=== PATIENT | male | born 1940 ===

== ENCOUNTER 2018-05-30 15:10 | Outpatient (CLI) | payer OTHER | END 2018-05-30 15:18 | disposition home or self-care (01) | LOC: RAD 15:10 | DX: R06.02 Shortness of breath (principal) ==

== ENCOUNTER 2018-06-19 05:37 | Day surgery (SDC) | payer OTHER ==
[~2018-06-19 05:37] MED LIST: ALPHAGAN P5 M2 OP; ALTACE10 MG PO; ASPIRIN81 M1 PO; ASPIRIN81 MG PO; FORTAMET1000 MG PO; INDOMETHACIN25 MG PO; TRUSOPT10 ML OP; ZOCOR40 MG PO
[2018-06-19] MEDS ORDERED: POLY119PG PO (12:49)
[2018-06-19] MEDS ORDERED: PERCOCET 5-3251 EACH PO (12:49)
[2018-06-19] MEDS ORDERED: NEURONTIN600 MG PO (12:51)
== END 2018-06-19 14:35 | disposition home or self-care (01) ==
LOC: CIR.AMB 05:37
DX: K40.90 Unilateral inguinal hernia, without obstruction or gangrene, not specified as recurrent (principal); K42.0 Umbilical hernia with obstruction, without gangrene; K43.6 Other and unspecified ventral hernia with obstruction, without gangrene

== ENCOUNTER 2020-11-24 06:00 | Day surgery (SDC) | payer OTHER ==
[~2020-11-24 06:00] MED LIST changes: +NEURONTIN600 MG PO; +PERCOCET 5-3251 EACH PO; +POLY119PG PO
[2020-11-24] MEDS ORDERED: SURFAK240 M1 PO (09:23)
[2020-11-24] MEDS ORDERED: POLY119PG PO (09:24)
[2020-11-24] MEDS ORDERED: ULTRAM50 MG PO (09:32)
== END 2020-11-24 12:30 | disposition home or self-care (01) ==
LOC: CIR.AMB 06:00
PROVIDERS: ATTEND Surgery
DX: K40.90 Unilateral inguinal hernia, without obstruction or gangrene, not specified as recurrent (principal); K42.9 Umbilical hernia without obstruction or gangrene; K43.2 Incisional hernia without obstruction or gangrene; Z20.822 Contact with and (suspected) exposure to COVID-19